=== PATIENT | male | born 1950 | race Caucasian/White ===

== ENCOUNTER → 2019-01-31 17:43 | Outpatient (CLI) | payer MEDICARE, OTHER ==
[2010-07-31 08:58] VITALS: BMI 39.9
[2019-01-31 19:20] LABS: T4 THYROXINE 8.4 ug/dL (4.7-13.3); THYROID STIMULATING HORMONE 1.03 uIU/mL (0.36-3.74)
== END | disposition home or self-care (01) ==
LOC: D.LABREF 17:43
PROVIDERS: ATTEND Internal Medicine Interventional Cardiology
DX: I48.91 Unspecified atrial fibrillation (principal)

== ENCOUNTER → 2019-02-16 08:39 | Outpatient (CLI) | payer MEDICARE, OTHER ==
[2010-07-31 08:58] VITALS: BMI 39.9
--- NOTE | ~2019-02-16 | EC ---
PATIENT:MICHELLE PHILLIP DATE OF SERVICE: 02/16/19 SEX: M MEDICAL RECORD: [id number] DATE OF : [birth year] [facility] AGE OF PATIENT: 68 ADMISSION DATE: 02/16/19 REFERRING PHYSICIAN: INTERPRETING PHYSICIAN: ODESSA YOU MD ECHOCARDIOGRAM REPORT ECHO CHARGES 4 ECHO COMPLETE Date: 02/16/19 CLINICAL DIAGNOSIS: ATRIAL FIB ECHOCARDIOGRAPHIC MEASUREMENTS (adult normal given) AC root (d.<3.7cm) 3.6 cm LV Septum d (<1.2 cm> 1.2 cm Valve Excursion 1.9 cm LV Septum (systole) 1.4 cm Left Atria (s.<4.0cm> 5.3 cm LVPW d(<1.2cm) 1.4 cm RV (d.<2.3cm) 5.0 cm LVPW (sytole) 2.2 cm LV diastole(<5.6CM) 6.3 cm MV E-F(>70mm/sec) cm LV systole 4.7 cm LVOT Diameter 2.0 cm MV exc.(>10mm) 2.5 cm Est.ejection fraction (50-75%) % DOPPLER: LVIT cm/sec A 26.0 cm/sec E 109 cm/sec LA cm/sec RVSP 36 mmHg LVOT 110 cm/sec AOP1/2T m/s Asc. Ao 175 cm/sec RVOT 77 cm/sec RA cm/sec PA 137 cm/sec AV Gradient Peak 12.22mmHg AV Mean 6.85 mmHg AV Area 2.6 cm MV Gradient Peak 10.54mmHg MV Mean 3.05 mmHg MV Area cm COMMENTS: Disc Ruler Operator: Lena MOORE Ordained Minister: 1 Dr. You TAPE# PACS Pericardial Effusion N DATE OF SERVICE: 02/16/2019 FINDINGS: 1. Left ventricular chamber size is mildly dilated. Left ventricular systolic function is preserved at 60% to 65%. Left atrium is enlarged at 5.3 cm. Right atrium and right ventricular chamber sizes are as well mildly dilated. 2. Valvular structures have normal structure and motion. 3. Doppler interrogation reveals moderate mitral regurgitation, icbe-[id number]-eubdowyo tricuspid regurgitation, no other valvular insufficiency or stenosis. Pulmonary systolic pressure is estimated at 36 mmHg. ECHOCARDIOGRAM REPORT [id number] MICHELLE PHILLIP 4. No evidence of pericardial effusion or left ventricular thrombus. TRANSINT:[id number] Voice Confirmation ID: [id number] DOCUMENT ID: [id number] ODESSA YOU MD CC: [id number] DICTATION DATE: 02/17/19 1015 HOOP PUNCHER: 02/17/19 1028 DEP CLI 02/16/19 [facility] [address] [place] [address]
--- NOTE | ~2019-02-16 | ST ---
PATIENT:MICHELLE PHILLIP MEDICAL RECORD: [id number] SEX: M LOCATION:[facility] ORDER #: ADMISSION DATE: 02/16/19 AGE OF PATIENT: 68 REFERRING PHYSICIAN: INTERPRETING PHYSICIAN: ODESSA CASTREJON MD DATE OF SERVICE: 02/16/2019 PROCEDURE: Nuclear stress test. INDICATION: Angina, abnormal ECG, atrial fibrillation, and hyperlipidemia. He was exercised on standard Buck protocol for 5 minutes 45 seconds with achieving greater than 85% maximum target heart rate response with 28 mCi of sestamibi injected at peak stress, 9 mCi used previously for rest images. FINDINGS: Gated SPECT reveals a decreased ejection fraction, mildly dilated left ventricle, ejection fraction is 47%. SPECT imaging Cardiolite was used as myocardial perfusion agent. There is a mixed perfusion defect, partially fixed, partially reversible throughout the inferior segments. This includes the basal, mid, apical, inferior segments. There is reversibility laterally. This includes the basal, mid, apical, and lateral segments. The amount of myocardium involved between both defects is large. OVERALL IMPRESSION: This is an intermediate to high risk abnormal nuclear stress test with mixed perfusion defect, partially fixed, partially reversible throughout the inferior segments reversibility throughout the lateral segments suggestive of possible multivessel disease. We will proceed with coronary angiography as followup study. TRANSINT:[id number] Voice Confirmation ID: [id number] DOCUMENT ID: [id number] cc: yue Rubin JEFFREY MD CC: [id number] DICTATION DATE: 02/16/19 1248 FIRE HAZARD INSPECTOR: 02/16/19 2315 DEP CLI 02/16/19 [place] [address]
== END | disposition home or self-care (01) ==
LOC: D.HCCARDIO 08:39
PROVIDERS: ATTEND Internal Medicine Interventional Cardiology
DX: I48.91 Unspecified atrial fibrillation (principal)

== ENCOUNTER → 2019-02-20 07:58 | Outpatient (CLI) | payer MEDICARE, OTHER ==
[2010-07-31 08:58] VITALS: BMI 39.9
[~2019-02-20 07:58] MED LIST: CALCIUM PO; FISH OIL 1,0001 CA1 PO; PLAVIX75 MG PO; PRAVACHOL40 MG PO; VITAMIN B 12 PO; XARELTO20 MG PO
[2019-02-23 09:46] VITALS: BMI 27.8
== END | disposition home or self-care (01) ==
LOC: D.US 07:58
PROVIDERS: ATTEND Internal Medicine Hematology & Oncology
DX: D69.49 Other primary thrombocytopenia (principal)

== ENCOUNTER 2019-02-23 09:01 | Outpatient (CLI) | payer MEDICARE, OTHER ==
[~2019-02-23] VITALS: Ht 182.9 cm; Wt 93.2 kg
--- NOTE | ~2019-02-23 | HEMODYNAMI ---
PATIENT:MICHELLE PHILLIP MEDICAL RECORD: [id number] : 48 LOCATION:[facility] ADMISSION DATE: 02/23/19 Generatedon:02/23/201911:54 Patient name: MICHELLE PHILLIP Patient #: [id number] SSN: [id number] : 1950 Date of study: 02/23/2019 Page: Of Hemodynamic Procedure Report Patient Data Patient Demographics Procedure consent was obtained First Name: MICHELLE Gender: Male Last Name: KENJI : 1950 Middle Initial: P Age: 68 year(s) Patient #: [id number] Race: SSN: [id number] Additional ID: [id number] Contact details Address: [address] [place] [address] State: [place] City: [facility] Zip code: [address] Past Medical History Performed procedures and imaging results Date Procedure Procedure Results Comments 02/16/2019 Stress testing Positive->High with SPECT MPI risk Allergies: No known allergies Admission Admission Data Admission Date: 02/23/2019 Admission Time: 9:01 Admit Source: Other Insurance Payor: Private health insurance, Medicare [facility] #: [id number] Height (in.): 72 BSA: 2.15 (m2) Height (cm.): 182.88 BMI: 27.81 (kg/m2) Weight (lbs.): 205.03 Weight (kg.): 93 Lab Results Lab Result Date: 02/23/2019 Lab Result Time: 9:45 Biochemistry Name Units Result Min Max BUN mg/dl 18 --(---*)-- 7 18 Creatinine mg/dl 1.1 --(--*-)-- 0.6 1.3 CBC Name Units Result Min Max Hematocrit % 42.3 --(*---)-- 42 54 Hemoglobin g/dl 15.8 --(--*-)-- 13.5 17.5 Procedure Procedure Types Cath Procedure Diagnostic Procedure LHC [facility] w/Coronaries Sedation Charges Moderate Sedation up to 30 minutes PCI Procedure Coronary Stent Coronary Stent Initial Coronary Stent Initial x2 Coronary Stent Additional Procedure Description Procedure Date Procedure Date: 02/23/2019 Procedure Start Time: 11:17 Procedure End Time: 11:52 Procedure Staff Name Function Manoj You MD Performing Physician Raman Olsen RT Monitor Moises Cronin RN Nurse Ramone Sanchez RT Scrub Indication Dyspnea Atrial fibrillation Abnormal ECG Angina Non-invasive tests a stress test Procedure Data Cath Procedure Fluoroscopy Diagnostic fluoroscopy Total fluoroscopy Time: time: 10.7 min 10.7 min Diagnostic fluoroscopy Total fluoroscopy dose: dose: 1260 mGy 1260 mGy Contrast Material Contrast Material Type Amount (ml) Isovue 300 205 Entry Location Entry Primary Successful Side Size Upsize Upsize Entry Closure [place] ccessful Closure Location (Fr) 1 (Fr) 2 (Fr) Remarks Device Remarks Radial Right 6 Fr Mechanical artery Short Compression Estimated blood loss: 10 ml Diagnostic catheters Device Type Used For End Catheter Placement DIAGNOSTIC [place] 110cm 5 Procedure Fr catheter ([id number]) Procedure Complications No complications Procedure Medications Medication Administration Route Dosage Oxygen etCO2 Nasal cannula 2 l/min Lidocaine 2% added to field 20 Heparin Flush Bag added to field 2 bags (1000units/500ml NS) 0.9% NaCl I.V. 100 ml/hr Radial Cocktail I.A. 1 syringe (Verapamil 2mg/Nitro 400mcg/Heparin 1500units) Versed I.V. 2 mg Fentanyl I.V. 50 mcg Heparin Bolus I.V. 4000 units Integrilin (Bolus I.V. 8.5 ml 2mg/ml) Versed I.V. 1 mg Fentanyl I.V. 50 mcg Versed I.V. 1 mg Fentanyl I.V. 50 mcg Plavix P.O. 600 mg Hemodynamics Rest BSA: 2.15 (m2) O2 Consumption: Estimated: 245.77 (ml/min) O2 Consumption indexed : Estimated:114.31 (ml/min/m) Heart Rate: 66 (bpm) Pressure Samples Time Site Value (mmHg) Purpose Heart Use Rate(bpm) 11:19 LV 141/-49,51 Snapshot 59 Snapshots Pre Cath Intra NCS Post Cath Vital Signs Time Heart Resp SPO2 etCO2 NIBP (mmHg) Rhythm Pain Sedation Rate (ipm) (%) (mmHg) Status Level (bpm) 11:10:24 59 22 94 34.7 Measuring A-Fib 0 (11) 10(A) , No pain 11:10:48 69 22 100 34.7 143/91(126) A-Fib 0 (11) 10(A) , No pain 11:15:41 76 15 94 0 139/107(123) A-Fib 0 (11) 10(A) , No pain 11:19:55 66 14 97 0 154/85(141) A-Fib 0 (11) 9(A) , No pain 11:24:05 58 15 93 0 139/82(117) A-Fib 0 (11) 9(A) , No pain 11:28:21 70 14 96 0 128/83(92) A-Fib 0 (11) 9(A) , No pain 11:32:31 82 15 95 27.1 132/86(118) A-Fib 0 (11) 9(A) , No pain 11:36:43 55 13 98 37.7 138/86(114) A-Fib 0 (11) 9(A) , No pain 11:41:38 65 19 98 35.4 149/82(132) A-Fib 0 (11) 9(A) , No pain 11:45:58 50 15 99 0 150/83(115) A-Fib 0 (11) 10(A) , No pain 11:50:20 69 11 100 0 116/82(109) A-Fib 0 (11) 10(A) , No pain Medications Time Medication Route Dose Verified Delivered Reason Not es Effectiveness by by 11:10:12 Oxygen etCO2 2 l/min Manoj De Leon used for Nasal Avelino Cronin RN procedure cannula 11:10:20 Lidocaine 2% added 20ml Manoj Aranda for local to vial Avelino You MD anesthetic field 11:10:25 Heparin Flush added 2 bags Manoj Aranda used for Bag to Avelino You MD procedure (1000units/500ml field NS) 11:10:34 0.9% NaCl I.V. 100 Manoj De Leon Per physician ml/hr Avelino Cronin RN 11:10:41 Radial Cocktail I.A. 1 Manoj Aranda for (Verapamil syringe Avelino You MD vasodilation 2mg/Nitro 400mcg/Heparin 1500units) 11:15:55 Fentanyl I.V. 50 mcg Manoj Buffie for sedation Avelino Cronin RN 11:16:49 Versed I.V. 2 mg Manoj Buffie for sedation Avelino Cronin RN 11:20:31 Versed I.V. 1 mg Manoj Buffie for sedation Avelino Cronin RN 11:20:34 Fentanyl I.V. 50 mcg Manoj Herediaie for sedation Avelino Cronin RN 11:23:07 Heparin Bolus I.V. 4000 Manoj Buffie for bridger ified units Avelino Cronin RN anticoagulation with dr you 11:24:22 Integrilin I.V. 8.5 ml Manoj Buffie for was chip (Bolus 2mg/ml) Avelino Cronin RN antiplatelet 1.5 ml therapy of vial 11:30:38 Versed I.V. 1 mg Manoj Herediaie for sedation Avelino Cronin RN 11:41:36 Fentanyl I.V. 50 mcg Manoj Herediaie for sedation Avelino Cronin RN 11:49:54 Plavix P.O. 600 mg Manoj Buffgeo for Avelino Cronin RN antiplatelet therapy Procedure Log Time Note 8:46:39 Admit Source: Other 8:46:42 Insurance Payor : Private health insurance, Medicare 8:50:12 Indication : Dyspnea 8:50:36 Indication : Atrial fibrillation 8:51:01 Indication : Abnormal ECG 8:51:08 Indication : Angina 8:52:30 Indication : Non-invasive tests a stress test 10:45:04 Ramone Sanchez RT(R) sent for patient. Start room use. 10:59:02 Procedure Status Elective Heart Cath (OP). 10:59:14 Time tracking: Regular hours (M-F 7:00 - 5:00) 10:59:18 Plan of Care:Hemodynamics will remain stable., Cardiac rhythm will remain stable., Comfort level will be maintained., Respiratory function will remain adequate., Patient/ family verbilizes understanding of procedure., Procedure tolerated without complication., Recovers from procedure without complications.. 11:00:27 Patient received from Pre/Post Procedure Room to CCL 1 Alert and oriented. Tansferred to table in Supine position. 11:00:33 Signed procedure consent form obtained from patient. 11:00:34 Warm blankets applied, and deyvi hugger turned on for patient comfort. 11:00:34 Correct patient and procedure confirmed by team. 11:00:35 ECG and BP/O2 sat monitors applied to patient. 11:00:36 Pre-procedure instructions explained to patient. 11:00:37 Pre-op teaching completed and patient verbalized understanding. 11:00:38 Family in waiting room. 11:08:34 Vital chart was started 11:08:36 Baseline sample Acquired. 11:08:40 Rhythm: atrial fibrillation 11:10:12 Oxygen 2 l/min etCO2 Nasal cannula was administered by Moises Cronin RN; used for procedure; 11:10:20 Lidocaine 2% 20ml vial added to field was administered by Manoj You MD; for local anesthetic; 11:10:25 Heparin Flush Bag (1000units/500ml NS) 2 bags added to field was administered by Manoj You MD; used for procedure; 11:10:34 0.9% NaCl 100 ml/hr I.V. was administered by Moises Cronin RN; Per physician; 11:10:41 Radial Cocktail (Verapamil 2mg/Nitro 400mcg/Heparin 1500units) 1 syringe I.A. was administered by Manoj You MD; for vasodilation; 11:11:58 H&P Date Dictated: 01/31/2019 Within 30 days and on chart., H&P Addendum completed by physician on day of procedure. (MUST COMPLETE FOR ALL OUTPATIENTS). 11:12:06 Patient allergic to No known allergies 11:12:07 Is the patient allergic to Iodine/contrast media? No. 11:12:10 Is patient on blood thinner?No 11:12:18 ACC The patient was administered the following blood thiners within the last 24 hours: None 11:12:24 Patient diabetic? No. 11:12:32 Patient Weight : 205.03 lbs 11:12:40 Patient Height : 72 inches 11:12:44 Previous problem with sedation/anesthesia? No ? 11:12:46 Snore? Yes 11:12:46 Sleep apnea? No 11:12:47 Deviated septum? No 11:12:48 Opens mouth fully? Yes 11:12:48 Sticks out tongue? Yes 11:12:49 Airway obstruction? No ? 11:12:52 Dentures? No ? 11:12:54 Pre procedure: right dorsailis pedis pulse 2+ Normal; easily identifiable; not easily obliterated 11:12:56 Modified Saul's test Ulnar < 7 seconds 11:12:58 Patient pain scale 0/10 ?. 11:13:02 IV patent on arrival in left forearm with 0.9% NaCl at [facility]. 11:14:20 Lab Result : BUN 18 mg/dl 11:14:20 Lab Result : Creatinine 1.1 mg/dl 11:14:20 Lab Result : Hemoglobin 15.8 g/dl 11:14:20 Lab Result : Hematocrit 42.3 % 11:14:22 Lab results completed and on chart. 11:14:25 Right Radial & Right Groin area was prepped with chlora-prep and draped in sterile fashion 11:14:25 Alarms reviewed by R. N. 11:14:26 Sharps counted by scrub and verified by R.N. 11:14:32 Use device set Radial Dx or PCI 11:14:33 ACIST Syringe (53769) opened to sterile field. 11:14:33 Medline Cath Pack ([id number]) opened to sterile field. 11:14:34 Bag Decanter (2002S) opened to sterile field. 11:14:34 ACIST Hand Control (99439) opened to sterile field. 11:14:34 ACIST Manifold (79625) opened to sterile field. 11:14:35 Tegaderm 4 x 4 (1626W) opened to sterile field. 11:14:35 MBrace Wrist Support ([id number]) opened to sterile field. 11:14:37 SHEATH 6FR RAIN (6461412) opened to sterile field. 11:14:38 EMERALD Guide Wire (803-422) opened to sterile field. 11:15:00 Physician arrived 11:15:00 --------ALL STOP TIME OUT------ 11:15:00 Final Timeout: patient, procedure, and site verified with staff and physician. All members of the team are in agreement. 11:15:02 Right Radial & Right Groin site verified by team. 11:15:05 Fire Safety Assessment: A--An alcohol-based skin anteseptic being used preoperatively., C--Open oxygen or nitrous oxide is being used., D--An ESU, laser, or fiber-optic light is being used. 11:15:08 Physical assessment completed. ASA score P 2 - A patient with mild systemic disease as per Manoj You MD. 11:15:15 2) 60-89 Mildly reduced kidney function, and other findings (as for stage 1) point to kidney disease. 11:15:55 Fentanyl 50 mcg I.V. was administered by Moises Cronin RN; for sedation; 11:16:49 Versed 2 mg I.V. was administered by Moises Cronin RN; for sedation; 11:17:06 Maximum allowable contrast dose (3.7 X eGFR X 0.75)194 ml. 11:17:10 Sedation plan: IV Moderate Sedation Medication:Versed, Fentanyl 11:17:14 Procedure started. 11:17:14 Full Disclosure recording started 11:17:18 Local anesthetic to right radial artery with Lidocaine 2% by Manoj You MD.INITIAL ACCESS ONLY 11:17:28 A 6 Fr Short sheath was inserted into the Right Radial artery 11:17:33 Zero performed for pressure channel P1 11:18:09 A DIAGNOSTIC [place] 110cm 5 Fr catheter (020999) was advanced over the wire and used for Procedure. 11:19:26 LV gram done using POLLARD 11:19:28 Injector settings: Ml/sec: 5, Volume: 15, 11:19:30 LV hemodynamics recorded. 11:19:51 EF : 35 % 11:19:56 LCA angiography performed. 11:20:31 Versed 1 mg I.V. was administered by Moises Cronin RN; for sedation; 11:20:34 Fentanyl 50 mcg I.V. was administered by Moises Cronin RN; for sedation; 11:20:52 CHOICE PT Extra Support 182cm wire ([id number]) opened to sterile field. 11:20:52 INFLATOR Merit BasixCompak (IG8539) opened to sterile field. 11:21:18 RCA angiography performed. 11:21:43 GUIDE 6FR XBLAD 4.0 catheter ([id number]) opened to sterile field. 11:22:29 Catheter removed. 11:22:35 6 Fr XBLAD 4 guide catheter was inserted over the wire 11:23:07 Heparin Bolus 4000 units I.V. was administered by Moises Cronin RN; for anticoagulation; verified with dr you 11:23:11 CHOICE PT ES wire advanced. 11:23:52 Wire advanced across lesion. 11:24:22 Integrilin (Bolus 2mg/ml) 8.5 ml I.V. was administered by Moises Cronin RN; for antiplatelet therapy; wasted 1.5 ml of vial 11:26:14 Pre PCI Site: [place] pCirc has 85% stenosis. 11:26:16 Place stent Inflation Number: 1 A PEDRO RX 4.0 x 15 stent ([id number]) was prepped and advanced across the Prox CX . The stent was deployed at 17 LITO for 0:10 (min:sec) . 11:26:39 Stent catheter was removed intact over wire. 11:27:51 Pre PCI Site: [place] OM1 has 90% stenosis. 11:28:02 Inflate balloon Inflation number: 1 A EUPHORA 2.5 x 12 Balloon ([id number]) was prepped and advanced across the 1st Ob Colleen -1, then inflated to 15 LITO for 0:10 (min:sec) -1. 11:28:19 Balloon removed over the wire. 11:30:21 ACT drawn and resulted at 355 seconds. (normal therapeutic range 180-240 seconds). 11:30:38 Versed 1 mg I.V. was administered by Moises Cronin RN; for sedation; 11:31:12 The PEDRO RX 2.75 x 18 stent ([id number]) was advanced then removed because of failure to cross lesion 11:31:22 Inflation number: 2 The EUPHORA 2.5 x 12 Balloon ([id number]) was reinflated across the 1st Ob Colleen -1, to 21 LITO for 0:10 (min:sec) -1. 11:31:28 Inflation number: 3 The EUPHORA 2.5 x 12 Balloon ([id number]) was reinflated across the 1st Ob Colleen -1, to 21 LITO for 0:10 (min:sec) -1. 11:31:39 Balloon removed over the wire. 11:32:54 Place stent Inflation Number: 4 A PEDRO RX 2.75 x 18 stent ([id number]) was prepped and advanced across the 1st Ob Colleen . The stent was deployed at 11 LITO for 0:10 (min:sec) . 11:33:53 CHOICE PT Extra Support 182cm wire ([id number]) opened to sterile field. 11:34:00 Stent catheter was removed intact over wire. 11:34:01 Wire removed. 11:34:07 CHOICE PT ES wire advanced. 11:35:18 Pre PCI Site: [place] Diag2 has 90% stenosis. 11:37:13 Place stent Inflation Number: 1 A PEDRO RX 2.25 x 12 stent ([id number]) was prepped and advanced across the 2nd Diag . The stent was deployed at 15 LITO for 0:10 (min:sec) . 11:37:24 Post PCI Site: [place] Diag2 has 0% stenosis. 11:37:31 Stent catheter was removed intact over wire. 11:37:32 Wire removed. 11:37:32 Guide catheter removed. 11:37:40 GUIDE 6FR AR 2.0 SH catheter ([id number]) opened to sterile field. 11:37:47 Pre PCI Site: [place] dRCA has 90% stenosis. 11:37:54 6 Fr AR 2 SH guide catheter was inserted over the wire 11:38:38 CHOICE PT ES wire advanced. 11:39:14 Wire advanced across lesion. 11:40:12 Post PCI Site: [place] OM1 has 0% stenosis. 11:40:39 Procedure type changed to Cath procedure, Diagnostic procedure, LHC, LHC w/Coronaries, Sedation Charges, Moderate Sedation up to 30 minutes, PCI procedure, Coronary Stent, Coronary Stent Initial, Coronary Stent Initial x2, Coronary Stent Additional 11:41:36 Fentanyl 50 mcg I.V. was administered by oMises Cronin RN; for sedation; 11:43:05 Inflate balloon Inflation number: 1 A EUPHORA 2.0 x 15 Balloon ([id number]) was prepped and advanced across the Dist RCA , then inflated to 11 LITO for 0:10 (min:sec) . 11:43:24 Inflation number: 2 The EUPHORA 2.0 x 15 Balloon ([id number]) was reinflated across the Dist RCA -1, to 13 LITO for 0:10 (min:sec) -1. 11:43:56 Balloon removed over the wire. 11:45:12 Place stent Inflation Number: 3 A PEDRO RX 2.5 x 18 stent ([id number]) was prepped and advanced across the Dist RCA -1. The stent was deployed at 15 LITO for 0:10 (min:sec) -1. 11:45:19 Post PCI Site: [place] dRCA has 0% stenosis. 11:48:57 Stent catheter was removed intact over wire. 11:48:58 Wire removed. 11:48:58 Guide catheter removed. 11:49:02 TR BAND Standard ([id number]) opened to sterile field. 11:49:12 Sheath removed intact; hemostasis achieved with Mechanical Compression to the Right Radial artery. 11:49:14 Procedure ended.(Physican Out) 11:49:54 Plavix 600 mg P.O. was administered by Moises Cronin RN; for antiplatelet therapy; 11:50:32 Fluoroscopy time 10.70 minutes. 11:50:37 Fluoroscopy dose: 1260 mGy 11:50:37 Flurop Dose total: 1260 11:50:41 Dose Area Product 53987 mGy/cm. 11:50:57 Cumulative Air Kerma 1260mGy. 11:51:02 Contrast amount:Isovue 300 205ml. 11:51:05 Maximum allowable dose exceeded? Yes. 5ML 11:51:21 Sharps counted by scrub and verified by R.N. 11:51:23 TR band inflated with 12cc of air. 11:51:25 Insertion/operative site no bleeding no hematoma. 11:51:31 Post right radial artery:stable, soft, clean and dry 11:51:44 Post Procedure Pulses reassessed and unchanged 11:51:46 Post-procedure physical assessment completed. ASA score P 2 - A patient with mild systemic disease as per Manoj You MD. 11:51:49 Post procedure rhythm: unchanged. 11:51:51 Estimated blood loss: 10 ml 11:51:52 Post procedure instruction explained to patient.Patient verbalizes understanding. 11:51:52 Patient needs reinforcement of post procedure teaching. 11:51:53 Procedure and supply charges have been captured, reviewed, submitted and are correct. 11:52:46 Procedure Complication : No complications 11:52:50 Vital chart was stopped 11:52:50 See physician's report for complete and final results. 11:52:52 Report given to Pre/Post Procedure Room. 11:52:53 Patient transfered to Pre/Post Procedure Room with Stretcher. 11:52:55 Procedure ended. 11:52:55 Full Disclosure recording stopped 11:53:02 ACC-PCI Only Patient was given prescriptions, or instructed by Manoj You MD to start/continue the following medications upon discharge: Aspirin, Plavix 11:53:03 End room use (Document Last) Intervention Summary Intervention Notes Time ActionType Lesion and Equipment Used Action# Pressure Duration Attributes 11:26:16 Place stent Prox CX PEDRO RX 4.0 x 1 17 00:10 15 stent ([id number]) 11:28:02 Inflate 1st Ob Colleen EUPHORA 2.5 x 1 15 00:10 balloon 12 Balloon ([id number]) 11:31:12 Discard PEDRO RX 2.75 x Stent 18 stent ([id number]) 11:31:22 Reinflate 1st Ob Colleen EUPHORA 2.5 x 2 21 00:10 balloon 12 Balloon ([id number]) 11:31:28 Reinflate 1st Ob Colleen EUPHORA 2.5 x 3 21 00:10 balloon 12 Balloon ([id number]) 11:32:54 Place stent 1st Ob Colleen PEDRO RX 2.75 x 4 11 00:10 18 stent ([id number]) 11:37:13 Place stent 2nd Diag PEDRO RX 2.25 x 1 15 00:10 12 stent ([id number]) 11:43:05 Inflate Dist RCA EUPHORA 2.0 x 1 11 00:10 balloon 15 Balloon ([id number]) 11:43:24 Reinflate Dist RCA EUPHORA 2.0 x 2 13 00:10 balloon 15 Balloon ([id number]) 11:45:12 Place stent Dist RCA PEDRO RX 2.5 x 3 15 00:10 18 stent ([id number]) Device Usage Item Name Manufacture Quantity Catalog Number Hospital Part Current M inimal Lot# / Charge Number Stock Stock Serial# Code ACIST Syringe Acist 1 61128 155935 475954 064059 2 0 (96085) Medical Systems Inc Medline Cath Medline 1 [id number] 845497 28501 857615 5 Pack ([id number]) Bag Decanter Microtek 1 814275 05997 453323 5 () Medical Inc. ACIST Hand Acist 1 98953 283139 044943 609531 5 Control Medical (05740) Systems Inc ACIST Manifold Acist 1 01132 150406 782210 470883 5 (63923) Medical Systems Inc Tegaderm 4 x 4 3M 1 1626W 466063 474293 681253 5 (1626W) MBrace Wrist Advanced 1 140-0250-00 784727 98626 263800 5 Support Vascular ([id number]) Dynamics SHEATH 6FR Cardinal 1 1196659 527217 3326864 622123 5 RAIN (6879271) Health EMERALD Guide Cardinal 1 502-455 207072 528234 052750 5 Wire (502455) Health DIAGNOSTIC Terumo 1 40-9173 725803 361793 350155 5 [place] 110cm 5 Fr catheter (200732) CHOICE PT [place] 2 [id number] 360165 917359 460933 5 Extra Support Scientific 182cm wire ([id number]) INFLATOR Merit Merit 1 JF0572 959171 638424 412005 1 5 CrayonPixel (BY0355) GUIDE 6FR Cardinal 1 49684495 538586 298756 328779 3 XBLAD 4.0 Health catheter (44897226) PEDRO RX 4.0 x Medtronic 1 [id number] 007811 8880191 720924 5 [id number] 15 stent ([id number]) EUPHORA 2.5 x Medtronic 1 [id number] 406347 775976 618637 5 [id number] 12 Balloon ([id number]) PEDRO RX 2.75 x Medtronic 1 [id number] 783968 8927523 439993 5 [id number] 18 stent ([id number]) PEDRO RX 2.25 x Medtronic 1 [id number] 068290 8172339 086598 5 [id number] 12 stent ([id number]) GUIDE 6FR AR Medtronic 1 [id number] 482804 21104 196762 1 2.0 SH catheter ([id number]) EUPHORA 2.0 x Medtronic 1 [id number] 834623 978564 694466 5 [id number] 15 Balloon ([id number]) PEDRO RX 2.5 x Medtronic 1 [id number] 042950 4819979 590736 5 [id number] 18 stent ([id number]) TR BAND Terumo 1 [id number] 789876 689695 071297 4 0 Standard ([id number]) Signature Audit [place] Stage Time Signature Unsigned Intra-Procedure 02/23/2019 Raman Olsen 11:54:29 AM RT(R) Signatures Performing Physician : Signature : Manoj You MD Date : Time : Monitor : Raman Olsen RT Signature : Date : Time : Nurse : Moises Cronin RN Signature : Date : Time : [facility] [address] [address]
[2019-02-23] MEDS ORDERED: XARELTO20 MG PO (09:28)
[2019-02-23] MEDS ORDERED: PRAVACHOL40 MG PO (09:29)
[2019-02-23] MEDS ORDERED: FISH OIL 1,0001 CA1 PO (09:32)
[2019-02-23] MEDS ORDERED: CALCIUM PO (09:33)
[2019-02-23] MEDS ORDERED: VITAMIN B 12 PO (09:34)
[2019-02-23 09:46] VITALS: BP 162/86; Ht 182.9 cm; Wt 93.2 kg
[2019-02-23 09:55] LABS: BASOPHILS 0.2 % (0-2); EOSINOPHILS 2.3 % (0-7); HEMATOCRIT 42.3 % (42.0-54.0); HEMOGLOBIN 15.8 g/dL (13.5-17.5); MCH 33.5 pg (26.0-34.0); MCHC 37.4 g/dL (31.0-37.0); MCV 89.8 fL (80.0-100.0); MEAN PLATELET VOLUME 10.4 fL (7.4-10.4); MONOCYTES 6.8 % (2-11); NEUTROPHILS 69.7 % (40-80); PLATELET COUNT 108 10x3/uL (130-400); RBC 4.71 10x6/uL (4.20-6.10); RDW 13.6 % (11.5-14.5); WBC 4.4 10x3/uL (4.8-10.8)
[2019-02-23 10:07] LABS: ANION GAP 10.1 mmol/L (8-16); CALCIUM 8.6 mg/dL (8.5-10.1); CARBON DIOXIDE 30.1 mmol/L (21.0-32.0); CREATININE - SERUM 1.1 mg/dL (0.6-1.3); POTASSIUM - SERUM 4.2 mmol/L (3.5-5.1)
[2019-02-23] MEDS ORDERED: PLAVIX75 MG PO (12:07)
--- NOTE | 2019-02-23 12:12 | NUR ---
PT SLEEPING, AWAKENS EASILY. RESP WITH EASE ON ROOM AIR. NSR RATE 62. BP IS 170/72, DENIES ANY C/O CHEST PAIN. TR BAND IS CDI, FINGERS WARM AND CAP REFILL IS BRISK. WRIST IMMOBILIZER IN PLACE. AT BEDSIDE. DR CASTREJON HAS ROUNDED AND SPOKEN WITH PT AND . BED LOCKED AND LOW, SIDERAILS UP X2.
--- NOTE | 2019-02-23 12:33 | NUR ---
PT SLEEPING, AWKAKENS EASILY TO VERBAL STIMULI. TR BAND IS CDI, FINGERS WARM ANC AP REFILL IS BRISK. A-FIB WITH OCCASIONAL PVC'S, RATE IS 53, BP IS 116/81. PT DENIES ANY C/O CHEST PAIN. AT BEDSIDE.
--- NOTE | 2019-02-23 12:53 | NUR ---
TR BAND IS CDI, FINGERS WARM AND CAP REFILL IS BRISK. A-FIB WITH OCCASIONAL PVC'S, RATE 52. BP IS 131/72. AT BEDSIDE, PT SLEEPING
--- NOTE | 2019-02-23 13:38 | NUR ---
PT ALERT, SITTING UP IN BED EATING SANDWICH. TR BAND IS CDI, FINGERS WARM WITH BRISK CAP REFILL. A-FIB RATE 64, BP IS 121/82. PT DENIES ANY C/O CHEST PAIN OR NAUSEA.
--- NOTE | 2019-02-23 14:11 | NUR ---
PT HAS TOLERATED SANDWICH WITH NO C/O NAUSEA. TR BAND IS CDI, FIGNERS WARM AND CAP REFILL IS BRISK. PT HAS VOIDED 600 CC CLEAR YELLOW URINE TO URINAL. AT BEDSIDE. VSS.
--- NOTE | 2019-02-23 14:45 | OP ---
PATIENT NAME: MICHELLE PHILLIP MEDICAL RECORD: [id number] :48 LOCATION:D[facility] ADMISSION DATE: SURGEON: ODESSA CASTREJON MD DATE OF OPERATION: 02/23/2019 PROCEDURES: 1. PTCA stent RCA. 2. PTCA stent LAD diagonal. 3. PTCA stent left circumflex and first obtuse marginal. INDICATION: Unstable angina and coronary artery disease. PROCEDURE IN DETAIL: After informed consent was obtained and after a detailed description of the risks, benefits as well as alternative therapies, the patient elected to proceed with angiogram and angioplasty. The right radial area was prepped and draped in normal sterile fashion. Right radial artery was cannulated via modified Seldinger technique with placement of 6-Chilean sheath. All catheters exchanged through this sheath. FINDINGS: Left ventriculogram was performed in standard 30-degree POLLARD view, reveals global hypokinesis, ejection fraction 40%. SELECTIVE CORONARY ANGIOGRAPHY: 1. Left main has no significant angiographic disease. 2. Left anterior descending has previously placed stents that are widely patent and the LAD diagonal was 90% stenosed. 3. The left circumflex has 85% stenosis proximally followed by 90% stenosis of first obtuse marginal. 4. Right coronary is 95% stenosed. PTCA STENT OF THE RCA: The stent used was a 2.5 x 18 mm [place]. Result was 0% residual stenosis. PTCA STENT OF THE LEFT CIRCUMFLEX AND FIRST OBTUSE MARGINAL: The circumflex was addressed with a 4.0 x 15 mm Axel and obtuse marginal with a 2.75 x 18 mm [place]. Result was 0% residual stenosis. PTCA STENT OF THE LAD DIAGONAL: The stent used was a 2.25 x 12 mm [place]. Result was 0% residual. IMPRESSION: Successful percutaneous transluminal coronary angioplasty stent of the LAD diagonal, left circumflex obtuse marginal and RCA all going from 85% to 95% initial stenosis to 0% residual. TRANSINT:[id number] Voice Confirmation ID: [id number] DOCUMENT ID: [id number] ODESSA CASTREJON MD at 1445 CC: [id number] DICTATION DATE: 02/23/19 1151 WINDOWS INFRASTRUCTURE ENGINEER: 02/23/19 1304 [facility] [address] [place] [address]
--- NOTE | 2019-02-23 15:10 | NUR ---
PT SITTING UP IN BED, VISITING WITH . DENIES ANY C/O. A-FIB RATE 56, BP IS 128/42. SAT IS 97% ON ROOM AIR. TR BAND IS CDI, 3 CC WEANED WITH NO BLEEDING NOTED. FINGERS WARM AND CAP REFILL IS BRISK.
--- NOTE | 2019-02-23 15:33 | NUR ---
3 CC OF AIR WEANED FROM TR BAND WITH NO BLEEDING NOTED. PT ALERT AND DENIES NEEDS AT THIS TIME.
--- NOTE | 2019-02-23 16:06 | NUR ---
1545 4 CC OF AIR WEANED FROM TR BAND WITH NO BLEEDING NOTED.
--- NOTE | 2019-02-23 16:43 | NUR ---
1600 ALL REMAINING AIR WEANED FROM TR BAND AND BAND REMOVED AND 2X2, TEGADERM PLACED TO SITE. IV DC'D WITH CATH INTACT AND PT IS DRESSING FOR DC TO HOME WITH ASSIST.
--- NOTE | 2019-02-23 16:45 | NUR ---
1618 DC INSTRUCTIONS HAVE BEEN REVIEWED WITH PT AND WHO VERBALIZE UNDERSTANDING. PT AND VERBALIZE UNDERSTANDING TO START PLAVIX TOMORROW. 2X2 AND TEGADERM REMAIN CDI TO RIGHT WRIST. WRIST IMMOBILIZER IN PLACE. PT ESCORTED TO PRIVATE AUTO VIA WC BY NURSE WITH DRIVING HIM HOME. PT HAS ALL BELONGINGS AND DC INSTRUCTIONS AT TIME OF DC TO HOME. IS ALERT AND DENIES ANY C/O.
== END 2019-02-23 16:18 | disposition home or self-care (01) ==
LOC: D.CATH 09:01
PROVIDERS: ATTEND Internal Medicine Interventional Cardiology
DX: I25.110 Atherosclerotic heart disease of native coronary artery with unstable angina pectoris (principal); Z01.812 Encounter for preprocedural laboratory examination
CPT/HCPCS: 93458; C9600 ×3; C9601

== ENCOUNTER 2019-03-30 09:56 | Outpatient (CLI) | payer MEDICARE, OTHER ==
[~2019-03-30] VITALS: Ht 182.9 cm; Wt 93.2 kg
--- NOTE | ~2019-03-30 | HEMODYNAMI ---
PATIENT:MICHELLE PHILLIP MEDICAL RECORD: [id number] : 48 LOCATION:[facility] ADMISSION DATE: 03/30/19 Generatedon:03/30/201912:26 Patient name: MICHELLE PHILLIP Patient #: [id number] SSN: [id number] : 1950 Date of study: 03/30/2019 Page: Of Hemodynamic Procedure Report Patient Data Patient Demographics Procedure consent was obtained First Name: MICHELLE Gender: Male Last Name: KENJI : 1950 Middle Initial: P Age: 68 year(s) Patient #: [id number] Race: SSN: [id number] Additional ID: [id number] Contact details Address: [address] [place] [address] State: [place] City: [facility] Zip code: [address] Past Medical History Allergies: No known allergies Admission Admission Data Admission Date: 03/30/2019 Admission Time: 9:56 Height (in.): 71.65 BSA: 2.15 (m2) Height (cm.): 182 BMI: 28.08 (kg/m2) Weight (lbs.): 205.03 Weight (kg.): 93 Lab Results Lab Result Date: 03/30/2019 Lab Result Time: 0:00 Biochemistry Name Units Result Min Max BUN mg/dl 19 --(----)*- 7 18 Creatinine mg/dl 1.2 --(---*)-- 0.6 1.3 CBC Name Units Result Min Max Hematocrit % 39.5 -*(----)-- 42 54 Hemoglobin g/dl 14.7 --(-*--)-- 13.5 17.5 Procedure Procedure Types Cath Procedure Diagnostic Procedure Cardioversion External Procedure Description Procedure Date Procedure Date: 03/30/2019 Procedure Start Time: 12:14 Procedure End Time: 12:24 Procedure Staff Name Function Manoj You MD Performing Physician Cecilia Beyer RT Monitor Moises Cronin RN Nurse Raman PROCTOR Monitor Reji Bonilla CRNA Additional personnel Procedure Data Cath Procedure Fluoroscopy Diagnostic fluoroscopy Total fluoroscopy Time: 0 time: 0 min min Estimated blood loss: 0 ml Procedure Complications No complications Procedure Medications Medication Administration Route Dosage Oxygen etCO2 Nasal cannula 4 l/min Refer to Anesthesia Notes for Sedation Medications Hemodynamics Rest BSA: 2.15 (m2) O2 Consumption: Estimated: 247.48 (ml/min) O2 Consumption indexed : Estimated:115.11 (ml/min/m) Heart Rate: 68 (bpm) Snapshots Pre Cath Intra NCS Post Cath Vital Signs Time Heart Resp SPO2 etCO2 NIBP (mmHg) Rhythm Pain Sedation Rate (ipm) (%) (mmHg) Status Level (bpm) 12:13:25 50 14 100 33.8 161/84(119) NSR 0 (11) 10(A) , No pain 12:18:04 55 16 99 0 131/84(96) NSR 0 (11) 10(A) , No pain 12:21:26 52 11 98 12.7 128/69(93) NSR 0 (11) 10(A) , No pain Medications Time Medication Route Dose Verified Delivered Reason Notes Effective ness by by 12:13:40 Oxygen etCO2 4 Manoj De Leon Per Nasal l/min Avelino Cronin RN physician cannula 12:13:45 Refer to Manoj De Leon Anesthesia Avelino Cronin RN Notes for Sedation Medications Procedure Log Time Note 12:04:23 Raman Olsen RT(R) sent for patient. Start room use. 12:04:25 Procedure Status Elective Heart Cath (OP). 12:04:26 Time tracking: Regular hours (M-F 7:00 - 5:00) 12:04:29 Plan of Care:Hemodynamics will remain stable., Cardiac rhythm will remain stable., Comfort level will be maintained., Respiratory function will remain adequate., Patient/ family verbilizes understanding of procedure., Procedure tolerated without complication., Recovers from procedure without complications.. 12:05:36 H&P Date Dictated: 03/26/2019 Within 30 days and on chart., H&P Addendum completed by physician on day of procedure. (MUST COMPLETE FOR ALL OUTPATIENTS). 12:05:42 Patient allergic to No known allergies 12:06:15 Patient Weight : 205.03 lbs 12:06:27 Patient Height : 71.65 inches 12:08:33 Patient arrived from Pre/Post Procedure Room to CCL 2. Patient remains on bed/stretcher for procedure. 12:08:34 Signed procedure consent form obtained from patient. 12:08:35 Warm blankets applied, and deyvi hugger turned on for patient comfort. 12:08:35 Correct patient and procedure confirmed by team. 12:08:36 ECG and BP/O2 sat monitors applied to patient. 12:08:37 Reji Bonilla CRNA present and monitoring patient for TIVA. 12:09:51 Family in patients room. 12:09:53 Patient NPO since Midnight. 12:09:54 Is patient on blood thinner?Yes 12:09:59 ACC The patient was administered the following blood thiners within the last 24 hours: ACCPlavix, Xarelto 12:10:01 Patient diabetic? No. 12:10:04 Previous problem with sedation/anesthesia? No ? 12:10:05 Snore? Yes 12:10:06 Sleep apnea? No 12:10:07 Deviated septum? No 12:10:07 Opens mouth fully? Yes 12:10:08 Sticks out tongue? Yes 12:10:10 Airway obstruction? No ? 12:10:12 Dentures? No ? 12:10:22 IV patent on arrival in left hand with 0.9% NaCl at [facility]. 12:10:50 Lab Result : BUN 19 mg/dl 12:10:50 Lab Result : Creatinine 1.2 mg/dl 12:10:50 Lab Result : Hemoglobin 14.7 g/dl 12:10:50 Lab Result : Hematocrit 39.5 % 12:11:01 Lab results completed and on chart. 12:11:02 Alarms reviewed by R. N. 12:11:02 Sharps counted by scrub and verified by R.N. 12:11:29 --------ALL STOP TIME OUT------ 12:11:29 Final Timeout: patient, procedure, and site verified with staff and physician. All members of the team are in agreement. 12:11:32 Physical assessment completed. ASA score P 2 - A patient with mild systemic disease as per Manoj You MD. 12:11:36 Sedation plan: TIVA Medication:Propofol 12:12:20 Quick Combo opened to sterile field. 12:12:28 Vital chart was started 12:12:32 Full Disclosure recording started 12:12:38 Rhythm: atrial fibrillation 12:13:27 Baseline sample Acquired. 12:13:40 Oxygen 4 l/min etCO2 Nasal cannula was administered by Moises Cronin RN; Per physician; 12:13:45 Refer to Anesthesia Notes for Sedation Medications was administered by Moises Cronin RN; ; 12:14:03 Procedure started. 12:14:04 ------Cardioversion------ 12:15:43 Quick combo pads placed on patients chest and back. 12:15:51 Defibrillator synced and charged to 275 Joules. 12:16:21 Shock delivered. 12:16:52 Patient cardioverted to sinus rhythm . 12:16:57 Procedure ended.(Physican Out) 12:19:50 Fluoroscopy time 00.00 minutes. 12:20:06 Post-procedure physical assessment completed. ASA score P 2 - A patient with mild systemic disease as per Manoj You MD. 12:20:12 Estimated blood loss: 0 ml 12:20:14 Post procedure instruction explained to patient.Patient verbalizes understanding. 12:20:15 Patient needs reinforcement of post procedure teaching. 12:20:30 Procedure and supply charges have been captured, reviewed, submitted and are correct. 12:20:36 Procedure Complication : No complications 12:24:50 Vital chart was stopped 12:24:50 See physician's report for complete and final results. 12:24:52 Report given to Pre/Post Procedure Room. 12:24:54 Patient transfered to Pre/Post Procedure Room with Bed. 12:24:56 Procedure ended. 12:24:56 Full Disclosure recording stopped 12:25:01 End room use (Document Last) Device Usage Item Manufacture Quantity Catalog Hospital Part Current Minimal Lot# / Name Number Charge Number Stock Joselito [place]# Code Shoulder Tap 1 [id number] Combo Signature Audit [place] Stage Time Signature Unsigned Intra-Procedure 03/30/2019 Cecilia Beyer 12:26:07 PM RT(R) Signatures Performing Physician : Signature : Manoj You MD Date : Time : Monitor : Cecilia Beyer Signature : RT Date : Time : Nurse : Buffie Cronin RN Signature : Date : Time : Monitor : Raman Olsen RT Signature : Date : Time : [address] [place] [address]
[2019-03-30 10:28] VITALS: BP 143/82; Ht 182.9 cm; Wt 93.2 kg
[2019-03-30 10:46] LABS: BASOPHILS 0.3 % (0-2); EOSINOPHILS 3.1 % (0-7); HEMATOCRIT 39.5 % (42.0-54.0); HEMOGLOBIN 14.7 g/dL (13.5-17.5); LYMPHOCYTES 18.3 % (15-50); MCH 33.9 pg (26.0-34.0); MCHC 37.2 g/dL (31.0-37.0); MEAN PLATELET VOLUME 10.6 fL (7.4-10.4); MONOCYTES 7.7 % (2-11); NEUTROPHILS 70.6 % (40-80); PLATELET COUNT 100 10x3/uL (130-400); RBC 4.34 10x6/uL (4.20-6.10); RDW 13.7 % (11.5-14.5); WBC 3.9 10x3/uL (4.8-10.8)
[2019-03-30 10:52] LABS: INR 1.49 (0.85-1.17); PROTIME 17.4 SECONDS (11.6-15.0)
[2019-03-30 10:56] LABS: ANION GAP 11.4 mmol/L (8-16); CALCIUM 8.4 mg/dL (8.5-10.1); CARBON DIOXIDE 27.1 mmol/L (21.0-32.0); CREATININE - SERUM 1.2 mg/dL (0.6-1.3); POTASSIUM - SERUM 4.5 mmol/L (3.5-5.1)
--- NOTE | 2019-03-30 12:32 | NUR ---
PT ARRIVED BY STRETCHER. PLACED ON MONITOR. ASSESSMENT COMPLETED. CALL LIGHT WITHIN REACH. FAMILY AT BEDSIDE. VSS.
--- NOTE | 2019-03-30 12:48 | NUR ---
PT SITTING UP IN BED. CALL LIGHT WITHIN REACH. PT STILL IN SR WITH OCCASIONAL PACs. DR. CASTREJON ROUNDED AND SPOKE WITH PT AND PT'S FAMILY. PT SITTING UP EATING. DENIES NAUSEA/PAIN AT THIS TIME.
--- NOTE | 2019-03-30 13:15 | NUR ---
PT IN SINUS RHYTHM WITH OCCASIONAL PACs. PIV D/C'D. CATH TIP INTACT. PT TOLERATED WELL. DISCUSSED DISCHARGE INSTRUCTIONS WITH PT AND PT'S FAMILY. THEY VOICED UNDERSTANDING. INSTRUCTED TO GET UP AND DRESSED. FAMILY AT BEDSIDE TO ASSIST.
--- NOTE | 2019-03-30 13:29 | NUR ---
PT AMBULATED TO RESTROOM. VOIDED WITHOUT DIFFICULTY. REFUSES WHEELCHAIR. AMBULATED TO VEHICLE. NO S/S OF DISTRESS NOTED. STEADY GAIT NOTED. ALL BELONGINGS AND PAPERWORK IN HAND.
--- NOTE | 2019-04-11 14:31 | OP ---
PATIENT NAME: MICHELLE PHILLIP MEDICAL RECORD: [id number] :48 LOCATION:[facility] ADMISSION DATE: SURGEON: ODESSA CASTREJON MD DATE OF OPERATION: 03/30/2019 PROCEDURE: DC cardioversion. INDICATION: Atrial fibrillation. PROCEDURE IN DETAIL: IV conscious sedation was per anesthesia. He received 1 shock at 275 joules restoring sinus rhythm. OVERALL IMPRESSION: Successful DC cardioversion from atrial fibrillation to sinus rhythm. TRANSINT:[id number] Voice Confirmation ID: [id number] DOCUMENT ID: [id number] ODESSA CASTREJON MD at 1431 CC: [id number] DICTATION DATE: 03/30/19 1241 DUST BOX TENDER: 03/30/19 1251 DEP CLI 03/30/[address] [address]
== END 2019-03-30 13:29 | disposition home or self-care (01) ==
LOC: D.CATH 09:56
PROVIDERS: ATTEND Internal Medicine Interventional Cardiology
DX: I48.91 Unspecified atrial fibrillation (principal); Z01.812 Encounter for preprocedural laboratory examination

== ENCOUNTER 2020-11-21 07:29 | Day surgery (SDC) | payer MEDICARE, OTHER ==
--- NOTE | 2020-11-20 10:47 | NUR ---
CONFIRMED PT APPT FOR 11/21/20 THINNERS: XARELTO - STOPPED TUESDAY NPO: PT VERBALIZES UNDERSTANDING TO TAKE BP MEDS IN THE MORNING WITH SIP OF WATER [employer] DIRECTOR: YES ARRIVAL TIME: 729
[~2020-11-21] VITALS: Ht 182.9 cm; Wt 93.2 kg
[2020-11-21 08:07] LABS: BASOPHILS 0.2 % (0-2); EOSINOPHILS 3.7 % (0-7); HEMATOCRIT 43.3 % (42.0-54.0); HEMOGLOBIN 15.4 g/dL (13.5-17.5); IMMATURE GRANULOCYTES 0.2 % (0-5); MCH 32.6 pg (26.0-34.0); MCHC 35.6 g/dL (31.0-37.0); MCV 91.7 fL (80.0-100.0); MEAN PLATELET VOLUME 11.3 fL (7.4-10.4); NEUTROPHIL ABS# 2.95 10x3/uL (1.78-5.38); NEUTROPHILS 64.9 % (40-80); PLATELET COUNT 112 10x3/uL (130-400); RBC 4.72 10x6/uL (4.20-6.10); RDW 13.1 % (11.5-14.5); WBC 4.6 10x3/uL (4.8-10.8)
[2020-11-21 08:11] LABS: ANION GAP 9.6 mmol/L (8-16); CARBON DIOXIDE 30.5 mmol/L (21.0-32.0); CREATININE - SERUM 1.3 mg/dL (0.6-1.3); POTASSIUM - SERUM 5.1 mmol/L (3.5-5.1)
[2020-11-21 08:20] LABS: APTT 29.3 SECONDS (22.8-39.4); INR 1.17 (0.85-1.17); PROTIME 13.8 SECONDS (11.6-15.0)
[2020-11-21 08:29] VITALS: Ht 182.9 cm; Wt 93.2 kg
== END 2020-11-21 13:30 | disposition home or self-care (01) ==
LOC: D.CT 07:29
PROVIDERS: Radiology Vascular & Interventional Radiology; ATTEND Internal Medicine Hematology & Oncology
DX: D69.49 Other primary thrombocytopenia (principal); I10 Essential (primary) hypertension; E78.5 Hyperlipidemia, unspecified; I25.10 Atherosclerotic heart disease of native coronary artery without angina pectoris